=== PATIENT | female | born 1995 | race Caucasian/White ===

== ENCOUNTER → 2021-01-20 | Outpatient (CLI) | payer OTHER ==
[2021-01-20 13:58] LABS: BASO # 0.03 K/mm3 (0.02-0.10); EOS # 0.22 K/mm3 (0.04-0.40); EOS % 2.3 % (1.0-5.0); HEMATOCRIT 42.7 % (37.0-47.0); LYMPH# 3.66 K/mm3 (1.50-4.00); MEAN CELL VOLUME 84 fl (78-100); MEAN CORPUSCULAR HEMOGLOBIN 27 pg (27-31); MEAN CORPUSCULAR HGB CONC 33 g/dL (33-37); MEAN PLATELET VOLUME 9.5 fl (7.4-10.4); MONO # 0.47 K/mm3 (0.20-0.80); NEU # 5.36 K/mm3 (1.40-6.50); PLATELET COUNT 278 K/mm3 (130-400); RED BLOOD COUNT 5.11 M/mm3 (4.10-5.30); RED CELL DISTRIBUTION WIDTH 13.5 % (11.5-14.5); WHITE BLOOD COUNT 9.8 K/mm3 (4.8-10.8)
[2021-01-20 14:02] LABS: ALBUMIN 4.1 g/dL (3.5-5.0); POTASSIUM 4.3 mmol/L (3.5-5.1)
[2021-01-20 14:03] LABS: CALCIUM 10.1 mg/dL (8.3-10.5)
[2021-01-20 14:05] LABS: TOTAL PROTEIN 7.7 g/dL (6.4-8.3)
[2021-01-20 14:06] LABS: TOTAL BILIRUBIN 0.4 mg/dL (0.2-1.2)
== END ==
LOC: LAB 13:41
PROVIDERS: Physician Assistant
DX: Z00.00 Encounter for general adult medical examination without abnormal findings (principal)

== ENCOUNTER 2023-06-11 18:16 | Emergency (ER) | payer OTHER ==
[~2023-06-11] VITALS: Ht 157.5 cm; Wt 90.0 kg
[2023-06-11] MEDS ORDERED: WEGOVY0.25 MG/0. SQ (18:32)
[2023-06-11 18:33] VITALS: BP 125/89
[2023-06-11 19:24] LABS: BASO # 0.04 K/mm3 (0.02-0.10); EOS # 0.15 K/mm3 (0.04-0.40); EOS % 1.5 % (1.0-5.0); HEMOGLOBIN 12.3 g/dL (12.5-16.0); LYMPH# 3.84 K/mm3 (1.50-4.00); MEAN CELL VOLUME 83 fl (78-100); MEAN CORPUSCULAR HEMOGLOBIN 27 pg (27-31); MEAN CORPUSCULAR HGB CONC 32 g/dL (33-37); MEAN PLATELET VOLUME 10.4 fl (7.4-10.4); MONO # 0.59 K/mm3 (0.20-0.80); NEU # 5.25 K/mm3 (1.40-6.50); PLATELET COUNT 235 K/mm3 (130-400); RED BLOOD COUNT 4.59 M/mm3 (4.10-5.30); RED CELL DISTRIBUTION WIDTH 13.5 % (11.5-14.5); WHITE BLOOD COUNT 9.9 K/mm3 (4.8-10.8)
[2023-06-11 19:28] LABS: ALBUMIN 3.9 g/dL (3.5-5.0); SODIUM 140 mmol/L (136-145)
[2023-06-11 19:30] LABS: GLUCOSE 86 mg/dL (65-105)
[2023-06-11 19:31] LABS: TOTAL PROTEIN 6.9 g/dL (6.4-8.3)
[2023-06-11 19:32] LABS: CARBON DIOXIDE 21 mmol/L (22-29); TOTAL BILIRUBIN 0.4 mg/dL (0.2-1.2)
[2023-06-11 19:36] LABS: AST-SGOT 15 U/L (5-34)
[2023-06-11 19:37] LABS: ALT/SGPT 10 U/L (0-55)
[2023-06-11 19:43] LABS: TROPONIN-I < 0.030 ng/mL (0.00-0.033)
[2023-06-11] MEDS ORDERED: Ketorolac 30 MG/ML VIAL IV ONE (21:00)
== END 2023-06-11 21:45 | disposition home or self-care (01) ==
LOC: ED 18:16
PROVIDERS: Family Medicine
DX: M94.0 Chondrocostal junction syndrome [Tietze] (principal); R06.81 Apnea, not elsewhere classified
CPT/HCPCS: J1885

== ENCOUNTER 2024-04-17 14:26 | Emergency (ER) | payer OTHER ==
[~2024-04-17] VITALS: Ht 157.5 cm; Wt 86.4 kg
[~2024-04-17 14:26] MED LIST: WEGOVY0.25 MG/0. SQ
[2024-04-17] MEDS ORDERED: VITAMIN D21250 MCG PO (14:52)
[2024-04-17 15:49] VITALS: BP 138/88
== END 2024-04-17 15:49 | disposition home or self-care (01) ==
LOC: ED 14:26
DX: S09.90XA Unspecified injury of head, initial encounter (principal); R20.2 Paresthesia of skin; W22.8XXA Striking against or struck by other objects, initial encounter; Y99.0 Civilian activity done for income or pay